=== PATIENT | female | born 1990 | race African-American/Black ===

== ENCOUNTER 2018-01-08 20:30 | Emergency (ER) | payer OTHER, SELFPAY ==
[2018-01-08 21:08] LABS: Bilirubin Negative (Negative); Blood, Urine Large (Negative); Clarity Clear (Clear); Glucose, Urine (Dipstick) Negative (Negative); Leukocyte Negative (Negative); Nitrite Negative (Negative); Protein, Urine (Dipstick) Negative (Neg-Trace); Specific Gravity, Urine 1.025 (1.005-1.030); Urobilinogen 0.2 mg/dL (0.2-1.0); pH, Urine 6.5 (5.0-9.0)
[2018-01-08 21:12] LABS: Pregnancy Test - Urine (BHCG) POSITIVE (Negative); Pregu Control Background? CLEAR/WHITE (CLR/WHITE); Pregu Control Bar Appear? YES (CONTROL BAR); Specific Gravity 1.025 (1.002-1.036)
[2018-01-08 21:13] LABS: Squamous Epithelial 0-3 HPF (0-3); WBC/HPF 0-3 HPF (0-3)
[2018-01-08 21:14] LABS: Bacteria/HPF 1+ HPF (None Seen); Hyaline Casts/LPF 0-3 HYALINE CAST LPF (0-3 Hyaline)
[2018-01-08 22:12] LABS: Anisocytosis SLIGHT = 6-15 cells (100X) (0-5/hpf); Hemoglobin 10.4 g/dL (12.0-16.0); Hypochromia SLIGHT = 6-15 cells (100X) (0-5/hpf); Lymphocytes 22 % (21-51); MDiff Complete? YES; Mean Corpuscular HGB CONC 32.1 g/dL (32.0-36.0); Mean Corpuscular Hemoglobin 25.3 pg (27.0-31.0); Mean Corpuscular Volume 78.8 fL (78.0-98.0); Mean Platelet Volume 6.5 fL (7.4-10.4); Monocytes 5 % (0-10); Neutrophil 71 % (42-75); PLT Morphology Comment Appears Adequate; Platelet Count 310 thou/uL (130-400); RBC Distribution Width 14.6 % (11.5-14.5); Reactive Lymphocytes 2 % (0-10); Red Blood Cell (RBC) Count 4.09 mill/uL (4.20-5.40); Stomatocytes SLIGHT = 2-5 cells (100X) (0-1/hpf); White Blood Cell (WBC) Count 7.1 thou/uL (4.8-10.8)
--- NOTE | 2018-01-09 00:27 | ULT ---
PELVIC ULTRASOUND: HISTORY: patient. Pelvic pain. COMPARISON: None. TECHNIQUE: Transabdominal imaging of a gravid uterus is performed. FINDINGS: The uterus is identified, measuring 6.7 x 8.7 x 11.9 cm. Within the endometrium is a gestational sac , a yolk sac, and a pole. Alzada-rump length is 4.76 cm, corresponding to a gestational age of 11 weeks and 4 days. heart tones with a rate of 180 to 182 beats per minute. No evidence of a yolk sac. Hypoechoic areas within the uterus may represent small subchorionic hemorrhage, measuring 2.2 cm in m aximum dimensions. Currently, the placenta appears to be low lying. Neither ovary is appreciated. No fluid in the left of right adnexa. IMPRESSION: 1. Single intrauterine gestation with heart tones. Gestational age by crown-rump length is 11 weeks 4 days. 2. Small, subchorionic hemorrhage. 3. There appears to be a low lying placenta. Continued surveillance to assess the placenta is recom mended during the progression of the POS: MARIA L
== END 2018-01-08 23:14 | disposition home or self-care (01) ==
LOC: SCSER 20:30
DX: O20.0 Threatened abortion (principal); Z3A.11 11 weeks gestation of pregnancy
CPT/HCPCS: 36415; 76856; 81003; 81015; 81025; 84702; 85025; 86900; 86901; 93976

== ENCOUNTER 2018-01-23 17:11 | Outpatient (CLI) | payer OTHER ==
[2018-01-23 17:33] LABS: Hemoglobin 11.4 g/dL (12.0-16.0); Mean Corpuscular HGB CONC 32.7 g/dL (32.0-36.0); Mean Corpuscular Hemoglobin 27.7 pg (27.0-31.0); Mean Corpuscular Volume 84.9 fL (78.0-98.0); Mean Platelet Volume 6.8 fL (7.4-10.4); Platelet Count 327 thou/uL (130-400); RBC Distribution Width 15.1 % (11.5-14.5); White Blood Cell (WBC) Count 5.4 thou/uL (4.8-10.8)
== END 2018-01-23 17:12 | disposition home or self-care (01) ==
LOC: LABBT 17:11
PROVIDERS: ATTEND Obstetrics & Gynecology
DX: Z01.812 Encounter for preprocedural laboratory examination (principal); O02.1 Missed abortion; Z3A.12 12 weeks gestation of pregnancy
CPT/HCPCS: 85027; 86850; 86900; 86901

== ENCOUNTER 2018-01-24 10:03 | Day surgery (SDC) | payer OTHER ==
[2018-01-23 17:30] VITALS: BMI 29.3
[2018-01-24] MEDS ORDERED: CEFAZOLIN/Water 2 GM/20 ML SYRINGE ONE (10:34)
[2018-01-24] MEDS ORDERED: Midazolam HCl 2 mg/2 ml Vial ONE (11:24)
[2018-01-24] MEDS ORDERED: Fentanyl 100 MCG/2 ML VIAL ONE ×2 (11:48→13:29)
[2018-01-24] MEDS ORDERED: Lidocaine 1% PF 5 ML VIAL ONE (13:15)
[2018-01-24] MEDS ORDERED: Succinylcholine Chloride 20 MG/ML 10 ml SYRINGE FS ONE (13:15)
[2018-01-24] MEDS ORDERED: Ondansetron PF 4 MG/2 ML Vial ONE (13:15)
[2018-01-24] MEDS ORDERED: PROPOFOL 200 MG/20 ML VIAL ONE (13:15)
[2018-01-24] MEDS ORDERED: Dexamethasone 20 MG/5 ML VIAL ONE (13:15)
[2018-01-24] MEDS ORDERED: HYDROcodone/Acetaminophen 5/325 mg Tablet ONE (14:39)
--- NOTE | 2018-01-24 21:30 | OP ---
DATE OF PROCEDURE: 01/24/2018 PREOPERATIVE DIAGNOSIS: A 27-year-old female with missed miscarriage at 12 weeks. POSTOPERATIVE DIAGNOSIS: A 27-year-old female with missed miscarriage at 12 weeks. PROCEDURE PERFORMED: Cervical dilation with suction and curettage. SURGEON: Brandon Nash DO MECHANICAL TECH: None. ANESTHESIA: GETA per Dr. Mathew. ESTIMATED BLOOD LOSS: 200 mL. COMPLICATIONS: None. FINDINGS: 1. 12-week size uterus. 2. Gritty uterine texture noted at the end of the suction and curettage with sharp curettage. PROCEDURE IN DETAIL: The patient was taken back to the OR with IV fluids running. Once she was in t he OR, anesthesia was obtained with the patient in dorsal supine position. Once the patient was asle ep, she was placed in low dorsal lithotomy position and the vagina was prepped and draped in normal f ashion for gynecologic surgery. The patient received 2 grams of Ancef prior to the start of the case . The bladder was drained approximately 200 mL of urine. The surgeon was scrubbed in. An operative speculum was placed into the vagina with a normal-appearing cervix and vagina noted. The uterus darrell nded to 12 cm. The cervix was serially dilated with Reema dilators to allow passage of an 11-mm cure tte. After the cervical dilation was completed, the suction curette was gently passed through the ce rvix into the uterine cavity. The suction was initiated with immediate return of tissue and pr oducts of conception. The suction curettage was continued until products of conception were no longe r noted to be passing through the suction tubing and when minimal bleeding was noted. After the suct ion curettage portion of the procedure was completed, a sharp curette was gently passed through the c ervix and uterine cry was confirmed circumferentially. After this was completed, the cervix was exam ined and observed with no bleeding noted. All instruments were removed and the counts were correct. The patient was then taken out of lithotomy position. She was cleaned and dried, extubated, and tra nsferred to the recovery room in good condition. The findings were discussed with her family members after the procedure and their questions were answered.
== END 2018-01-24 15:45 | disposition home or self-care (01) ==
LOC: SDC 10:03
PROVIDERS: ATTEND Obstetrics & Gynecology
PROC: 10D17ZZ Extraction of Products of Conception, Retained, Via Natural or Artificial Opening (ICD-10-PCS; principal; 2018-01-24)
DX: O02.1 Missed abortion (principal); Z88.8 Allergy status to other drugs, medicaments and biological substances
CPT/HCPCS: 88305; 96374; J1100; J2001; J2250; J2405; J2704; J3010